=== PATIENT | female | born 1950 | race Caucasian/White ===

== ENCOUNTER 2022-03-20 12:17 | Inpatient (IN) | payer MEDICARE, MEDICAID ==
[2022-03-20] VITALS (10 sets, daily range): BP systolic 106–137; BP diastolic 37–68
[~2022-03-20] VITALS: Ht 162.6 cm; Wt 100.0 kg
[~2022-03-20 12:17] MED LIST: ALBU18HF2 INH; ALPR1TAB7 PO; BUDE10.2 INH; CHOL500050 PO; CYCL-524 PO; DULO60CA65 PO; FERR-119 PO; FLUT16SP26 NS; HYDR-4383 PO; LACT1CAP65 PO; LISI10TA27 PO; LORA10TA65 PO; LOVA20TA2 PO; MECL-159 PO; NICO-503 BC; NICO-687 TD; OMEP40CA21 PO; PRED10TA PO; PSEU-259 PO; ZET10T PO; [UNRECOGNIZED DRUG - CODE] PO
[2022-03-20 13:20] LABS: OCCULT BLOOD STOOL POSITIVE (Neg)
[2022-03-20 13:33] LABS: BASOPHILS % (AUTO) 0.9 % (0-1); EOSINOPHILS % (AUTO) 0.5 % (0-6); LYMPHOCYTES # (AUTO) 0.7 X10'3 (1.1-4.8); LYMPHOCYTES % (AUTO) 11.6 % (21-51); MEAN CORPUSCULAR HEMOGLOBIN 25.3 PG (27.0-31.0); MEAN CORPUSCULAR HGB CONC 30.2 g/dL (33.0-36.5); MEAN CORPUSCULAR VOLUME 83.7 FL (78-98); MEAN PLATELET VOLUME 8.7 FL (7.4-10.4); MONOCYTES # (AUTO) 0.4 X10'3 (0-0.9); MONOCYTES % (AUTO) 6.5 % (2-12); NEUTROPHILS # (AUTO) 4.7 X10'3 (1.8-7.7); NEUTROPHILS % (AUTO) 80.5 % (42-75); PLATELET COUNT 231 X10'3 (140-440); RED BLOOD COUNT 2.44 X10'6 (4.20-5.60); RED CELL DISTRIBUTION WIDTH 23.4 % (11.5-14.5); WHITE BLOOD COUNT 5.9 X10'3 (4.5-11.0)
[2022-03-20 13:34] LABS: ALANINE AMINOTRANSFERASE 13 U/L (12-78); ALBUMIN 3.3 G/DL (3.4-5.0); ALBUMIN/GLOBULIN RATIO 0.9 (1.1-1.5); ALKALINE PHOSPHATASE 86 IU/L (46-116); ANION GAP 5 (8-16); ASPARTATE AMINO TRANSFERASE 26 U/L (10-37); BILIRUBIN,TOTAL 0.1 MG/DL (0.1-1.0); BLOOD UREA NITROGEN 12 MG/DL (7-18); BUN/CREATININE RATIO 17.6 (6.6-38.0); CALCIUM 9.1 MG/DL (8.5-10.1); CHLORIDE 103 MMOL/L (99-107); CREATININE 0.68 MG/DL (0.40-0.90); GLUCOSE 107 MG/DL (70-104); POTASSIUM 4.2 MMOL/L (3.5-5.1); SODIUM 136 MMOL/L (135-145); TOTAL CARBON DIOXIDE 28.1 MMOL/L (24-32); TOTAL PROTEIN 6.8 G/DL (6.4-8.2); eGFR 85 ML/MIN
[2022-03-20 13:37] LABS: HEMATOCRIT 20.4 % (35.0-45.0); HEMOGLOBIN 6.2 g/dl (12.0-16.0)
[2022-03-20] MEDS ORDERED: pantoprazole IV 80 MG in normal saline 100ml IV soln 100 ML IV ONE (13:50)
[2022-03-20 14:09] LABS: HYPOCHROMASIA 1+; PLATELET ESTIMATE NORMAL; POLYCHROMASIA 2+
[2022-03-20 14:10] LABS: ANISOCYTOSIS 3+; ELLIPTOCYTES 1+; SCHISTOCYTES 1+; STOMATOCYTES 1+
[2022-03-20] MEDS ORDERED: pantoprazole 40 MG vial IV ONE (14:15)
[2022-03-20] MEDS ORDERED: ondansetron/PF 4mg/2ml inj IV PRN (14:30)
[2022-03-20] MEDS ORDERED: magnesium hydroxide 30ml (MOM) UD suspension PO PRN (14:30)
[2022-03-20] MEDS ORDERED: acetaminophen 325mg tablet PO PRN ×2 (14:30)
[2022-03-20] MEDS ORDERED: mag hydrox/Alum hydrox/simeth 30ml oral suspension PO PRN (14:30)
[2022-03-20] MEDS ORDERED: morphine 2 MG/ML inj. syringe IV PRN ×2 (14:30)
[2022-03-20] MEDS ORDERED: HYDROcodone/acetaminophen 5mg/325mg tablet PO PRN (14:30)
--- NOTE | 2022-03-20 14:30 | NUR ---
PT TO GI LAB
[2022-03-20] MEDS ORDERED: MIDAZolam 1 MG/ML 5ML VIAL ONE (14:34)
[2022-03-20] MEDS ORDERED: LIDOcaine Viscous 15ml cup ONE (14:34)
[2022-03-20] MEDS ORDERED: fentaNYL/PF 50MCG/1 ML 2ML syringe ONE (14:34)
[2022-03-20] MEDS ORDERED: CYCL10TA25 PO (15:00)
[2022-03-20] MEDS ORDERED: LISI10TA27 PO (15:00)
[2022-03-20] MEDS ORDERED: LOVA20TA2 PO (15:00)
[2022-03-20] MEDS ORDERED: FLUT1BLS16 PO (15:00)
[2022-03-20] MEDS ORDERED: ALPR0.5T9 PO (15:00)
--- NOTE | 2022-03-20 15:25 | NUR ---
PT STILL IN GI LAB
--- NOTE | 2022-03-20 15:40 | NUR ---
PT RETURNED FROM GI LAB. NO OBVIOUS SIGNS OF BLEEDING REPORTED. NO COMPLICATIONS REPORTED. 97% RA. PT A&OX4.
[2022-03-20] MEDS ORDERED: pantoprazole 40MG/NS 100ML BAG 100 ML IV SCH (16:00)
[2022-03-20] MEDS: pantoprazole 40MG/NS 100ML BAG 100 ML IV SCH (16:18)
[2022-03-20 16:27] LABS: EOSINOPHILS % (AUTO) 0.8 % (0-6); LYMPHOCYTES # (AUTO) 0.7 X10'3 (1.1-4.8); MONOCYTES # (AUTO) 0.4 X10'3 (0-0.9); NEUTROPHILS # (AUTO) 4.2 X10'3 (1.8-7.7); WHITE BLOOD COUNT 5.4 X10'3 (4.5-11.0)
[2022-03-20 16:29] LABS: BASOPHILS % (AUTO) 0.8 % (0-1); LYMPHOCYTES % (AUTO) 13.2 % (21-51); MEAN CORPUSCULAR VOLUME 83.5 FL (78-98); MEAN PLATELET VOLUME 8.4 FL (7.4-10.4); MONOCYTES % (AUTO) 7.6 % (2-12); NEUTROPHILS % (AUTO) 77.6 % (42-75); PLATELET COUNT 217 X10'3 (140-440); RED BLOOD COUNT 2.32 X10'6 (4.20-5.60); RED CELL DISTRIBUTION WIDTH 23.6 % (11.5-14.5)
[2022-03-20 16:31] LABS: HEMOGLOBIN 5.8 g/dl (12.0-16.0)
[2022-03-20] MEDS: fluconazole/NS 400mg/200ml bag 200 ML IV SCH (16:40)
[2022-03-20] MEDS: docusate sod 100mg capsule PO SCH (19:12)
[2022-03-21] VITALS (15 sets, daily range): BP systolic 103–143; BP diastolic 34–64
[2022-03-21] MEDS: cyclobenzaprine 10mg tablet PO PRN ×2 (00:56→19:48)
[2022-03-21] MEDS: duloxetine 30mg CAPSULE.DR PO SCH ×3 (00:56→19:48)
[2022-03-21] MEDS: fluconazole/NS 400mg/200ml bag 200 ML IV SCH (01:42)
[2022-03-21] MEDS: pantoprazole 40MG/NS 100ML BAG 100 ML IV SCH ×2 (03:37→08:25)
[2022-03-21 06:37] LABS: BASOPHILS % (AUTO) 0.7 % (0-1); EOSINOPHILS # (AUTO) 0.1 X10'3 (0-0.9); EOSINOPHILS % (AUTO) 1.1 % (0-6); HEMATOCRIT 23.6 % (35.0-45.0); HEMOGLOBIN 7.5 g/dl (12.0-16.0); LYMPHOCYTES # (AUTO) 0.6 X10'3 (1.1-4.8); LYMPHOCYTES % (AUTO) 11.3 % (21-51); MEAN CORPUSCULAR HEMOGLOBIN 27.2 PG (27.0-31.0); MEAN CORPUSCULAR HGB CONC 31.8 g/dL (33.0-36.5); MEAN CORPUSCULAR VOLUME 85.3 FL (78-98); MEAN PLATELET VOLUME 8.7 FL (7.4-10.4); MONOCYTES # (AUTO) 0.2 X10'3 (0-0.9); MONOCYTES % (AUTO) 4.2 % (2-12); NEUTROPHILS # (AUTO) 4.2 X10'3 (1.8-7.7); NEUTROPHILS % (AUTO) 82.7 % (42-75); PLATELET COUNT 198 X10'3 (140-440); RED BLOOD COUNT 2.76 X10'6 (4.20-5.60); RED CELL DISTRIBUTION WIDTH 20.2 % (11.5-14.5); WHITE BLOOD COUNT 5.1 X10'3 (4.5-11.0)
[2022-03-21 07:00] LABS: ANION GAP 7 (8-16); BLOOD UREA NITROGEN 10 MG/DL (7-18); BUN/CREATININE RATIO 14.5 (6.6-38.0); CALCIUM 8.8 MG/DL (8.5-10.1); CHLORIDE 106 MMOL/L (99-107); CREATININE 0.69 MG/DL (0.40-0.90); GLUCOSE 90 MG/DL (70-104); SODIUM 140 MMOL/L (135-145); TOTAL CARBON DIOXIDE 27.5 MMOL/L (24-32); eGFR 84 ML/MIN
[2022-03-21 07:11] LABS: ANISOCYTOSIS 3+; ELLIPTOCYTES FEW; HYPOCHROMASIA 1+; MICROCYTOSIS 1+; PLATELET ESTIMATE NORMAL; POIKILOCYTOSIS 1+; POLYCHROMASIA 1+; TARGET CELLS FEW
[2022-03-21] MEDS: FLUTICASONE PO SCH (08:00)
[2022-03-21] MEDS: VILANTER PO SCH (08:00)
[2022-03-21] MEDS: docusate sod 100mg capsule PO SCH ×2 (08:00→19:48)
[2022-03-21] MEDS: UMECLIDIN PO SCH (08:00)
[2022-03-21] MEDS: ezetimibe 10mg tablet PO SCH (08:34)
[2022-03-21] MEDS: lisinopril 10 MG tablet PO SCH (08:35)
[2022-03-21] MEDS: ALPRAZolam 0.5mg tablet PO PRN ×2 (08:42→19:48)
[2022-03-21] MEDS: pantoprazole 40mg Tablet.DR PO SCH ×2 (08:45→19:49)
--- NOTE | 2022-03-21 10:15 | NUR ---
PAGER ID: [phone] MESSAGE: Kerline 1946 Re: [place], Please call re: Negative orthostatics and diet question, Non urgent Thank You
[2022-03-21] MEDS: atorvastatin 10mg tablet PO SCH (11:28)
--- NOTE | 2022-03-21 15:02 | NUR ---
PAGER ID: [phone] MESSAGE: Kerline [id number] [place] [id number] please call re: diet
--- NOTE | 2022-03-21 18:54 | NUR ---
Problems reprioritized. Patient report given, questions answered & plan of care reviewed with Marilee CARRILLO.
--- NOTE | 2022-03-21 19:05 | NUR ---
Patient in room ORTHO 4024. I have received report from GRANT CARRILLO and had the opportunity to ask questions and assume patient care.
[2022-03-22] MEDS ORDERED: fluconazole/NS 400mg/200ml bag 200 ML IV SCH (01:00)
[2022-03-22 06:00] VITALS: BP 140/55
[2022-03-22 06:10] LABS: BASOPHILS % (AUTO) 0.8 % (0-1); EOSINOPHILS # (AUTO) 0.1 X10'3 (0-0.9); EOSINOPHILS % (AUTO) 2.1 % (0-6); HEMATOCRIT 27.6 % (35.0-45.0); HEMOGLOBIN 8.7 g/dl (12.0-16.0); LYMPHOCYTES # (AUTO) 0.6 X10'3 (1.1-4.8); LYMPHOCYTES % (AUTO) 11.5 % (21-51); MEAN CORPUSCULAR HEMOGLOBIN 27.7 PG (27.0-31.0); MEAN CORPUSCULAR HGB CONC 31.5 g/dL (33.0-36.5); MEAN PLATELET VOLUME 8.9 FL (7.4-10.4); MONOCYTES # (AUTO) 0.4 X10'3 (0-0.9); MONOCYTES % (AUTO) 7.9 % (2-12); NEUTROPHILS # (AUTO) 4.1 X10'3 (1.8-7.7); NEUTROPHILS % (AUTO) 77.7 % (42-75); PLATELET COUNT 192 X10'3 (140-440); RED BLOOD COUNT 3.14 X10'6 (4.20-5.60); RED CELL DISTRIBUTION WIDTH 19.6 % (11.5-14.5); WHITE BLOOD COUNT 5.3 X10'3 (4.5-11.0)
[2022-03-22 06:14] LABS: ALBUMIN 3.2 G/DL (3.4-5.0); ANION GAP 2 (8-16); BLOOD UREA NITROGEN 11 MG/DL (7-18); BUN/CREATININE RATIO 14.3 (6.6-38.0); CALCIUM 8.7 MG/DL (8.5-10.1); CHLORIDE 103 MMOL/L (99-107); CREATININE 0.77 MG/DL (0.40-0.90); GLUCOSE 116 MG/DL (70-104); SODIUM 135 MMOL/L (135-145); TOTAL CARBON DIOXIDE 30.5 MMOL/L (24-32); eGFR 74 ML/MIN
--- NOTE | 2022-03-22 06:28 | NUR ---
Problems reprioritized. Patient report given, questions answered & plan of care reviewed with MICHAELA CARRILLO. Addendum: 03/22/22 at 0644 by Marilee Gallardo RN MISTAKENLY DOCUMENTED I REPORTED OFF ON THIS PATIENT TO MICHAELA. VERBAL REPORT GIVEN TO SAL CARRILLO
[2022-03-22 07:17] LABS: ANISOCYTOSIS 2+; PLATELET ESTIMATE NORMAL
[2022-03-22 07:18] LABS: POIKILOCYTOSIS 1+; POLYCHROMASIA 1+
[2022-03-22] MEDS: docusate sod 100mg capsule PO SCH (08:00)
[2022-03-22] MEDS: VILANTER PO SCH (08:00)
[2022-03-22] MEDS: FLUTICASONE PO SCH (08:00)
[2022-03-22] MEDS: UMECLIDIN PO SCH (08:00)
[2022-03-22] MEDS ORDERED: PANT-47 PO (09:36)
[2022-03-22] MEDS ORDERED: FLUC100T40 PO (09:36)
[2022-03-22] MEDS: duloxetine 30mg CAPSULE.DR PO SCH (09:53)
[2022-03-22] MEDS: lisinopril 10 MG tablet PO SCH (09:54)
[2022-03-22] MEDS: ezetimibe 10mg tablet PO SCH (09:54)
[2022-03-22] MEDS: atorvastatin 10mg tablet PO SCH (09:54)
[2022-03-22] MEDS: pantoprazole 40mg Tablet.DR PO SCH (09:54)
[2022-03-22 10:00] VITALS: BP 129/51
--- NOTE | 2022-03-22 11:10 | NUR ---
Discharge instructions given to patient, patient verbalized understanding of al instructions given to her. Patient has stored home medication at our hospital pharmacy, all her home meds were returned to patient prior to discharge. Peripheral IV catheter removed, tip intact. Instructed patient to ensure she has all belongings with her before leaving the hospital.
[2022-03-23 05:56] LABS: HEMATOCRIT 19.4 % (35.0-45.0)
[2022-03-23] MEDS ORDERED: fluconazole/NS 400mg/200ml bag 200 ML IV SCH (08:00)
--- NOTE | 2022-03-27 12:54 | NUR ---
Case Management DC follow up: telephoned Patient with number listed; however, number is no longer viable.
== END 2022-03-22 11:40 | disposition home or self-care (01) | DRG 368 ==
LOC: ER 12:17 → ED HOLD 14:28 → EDBEDREQ 17:06 → ORTHO 4S 21:45
PROVIDERS: ADMIT Internal Medicine; ATTEND Internal Medicine
PROC: 0DB58ZX Excision of Esophagus, Via Natural or Artificial Opening Endoscopic, Diagnostic (ICD-10-PCS; principal; 2022-03-20)
PROC: 30233N1 Transfusion of Nonautologous Red Blood Cells into Peripheral Vein, Percutaneous Approach (ICD-10-PCS; 2022-03-20)
DX: B37.81 Candidal esophagitis (principal); K31.811 Angiodysplasia of stomach and duodenum with bleeding; J44.1 Chronic obstructive pulmonary disease with (acute) exacerbation; D64.9 Anemia, unspecified; E78.00 Pure hypercholesterolemia, unspecified; E78.5 Hyperlipidemia, unspecified; F17.210 Nicotine dependence, cigarettes, uncomplicated; G47.30 Sleep apnea, unspecified; K57.90 Diverticulosis of intestine, part unspecified, without perforation or abscess without bleeding; F32.A Depression, unspecified; F41.9 Anxiety disorder, unspecified; I10 Essential (primary) hypertension; M79.7 Fibromyalgia; Z79.899 Other long term (current) drug therapy; Z80.3 Family history of malignant neoplasm of breast; Z82.49 Family history of ischemic heart disease and other diseases of the circulatory system
CPT/HCPCS: 36415; 36430; 43239; 71045; 80048; 80053; 82272; 82948; 83880; 84484; 85008; 85025; 86870; 86885; 86900; 86901; 86902; 86905; 86920; 86922; 87081; 88305; 88312; 97116; 97161; 97530; 99152; 99285; A4620; C9113; G0378; J1450; J2250; J2270; J2405; J3010; J7030; J7040; P9016

== ENCOUNTER 2022-06-08 21:28 | Emergency (ER) | payer MEDICARE, MEDICAID ==
[~2022-06-08] VITALS: Ht 162.6 cm; Wt 102.3 kg
[~2022-06-08 21:28] MED LIST changes: -ALBU18HF2 INH; +ALBU8.5H17 INH; +ALPR0.5T9 PO; -ALPR1TAB7 PO; -BUDE10.2 INH; -CHOL500050 PO; -CYCL-524 PO; +CYCL10TA25 PO; -FERR-119 PO; -FLUT16SP26 NS; +FLUT1BLS16 PO; -HYDR-4383 PO; -LACT1CAP65 PO; -LORA10TA65 PO; -MECL-159 PO; -NICO-503 BC; -NICO-687 TD; -OMEP40CA21 PO; -PRED10TA PO; -PSEU-259 PO; -[UNRECOGNIZED DRUG - CODE] PO
[2022-06-08 22:00] LABS: BASOPHILS # (AUTO) 0.1 X10'3 (0-0.2); BASOPHILS % (AUTO) 0.5 % (0-1); EOSINOPHILS # (AUTO) 0.1 X10'3 (0-0.9); EOSINOPHILS % (AUTO) 0.5 % (0-6); LYMPHOCYTES # (AUTO) 0.5 X10'3 (1.1-4.8); LYMPHOCYTES % (AUTO) 4.8 % (21-51); MEAN PLATELET VOLUME 8.5 FL (7.4-10.4); MONOCYTES # (AUTO) 0.6 X10'3 (0-0.9); MONOCYTES % (AUTO) 4.9 % (2-12); NEUTROPHILS # (AUTO) 10.2 X10'3 (1.8-7.7); NEUTROPHILS % (AUTO) 89.3 % (42-75); PLATELET COUNT 337 X10'3 (140-440); WHITE BLOOD COUNT 11.5 X10'3 (4.5-11.0)
[2022-06-08 22:17] LABS: RED BLOOD COUNT 4.44 X10'6 (4.20-5.60)
[2022-06-08 22:18] LABS: HEMATOCRIT 36.4 % (35.0-45.0); HEMOGLOBIN 11.7 g/dl (12.0-16.0); MEAN CORPUSCULAR HEMOGLOBIN 26.5 PG (27.0-31.0); MEAN CORPUSCULAR HGB CONC 32.2 g/dL (33.0-36.5); MEAN CORPUSCULAR VOLUME 82.1 FL (78-98); RED CELL DISTRIBUTION WIDTH 21.8 % (11.5-14.5)
[2022-06-08 22:22] LABS: ALANINE AMINOTRANSFERASE 18 U/L (12-78); ALBUMIN 3.6 G/DL (3.4-5.0); ALBUMIN/GLOBULIN RATIO 0.8 (1.1-1.5); ALKALINE PHOSPHATASE 88 IU/L (46-116); ANION GAP 11 (8-16); ASPARTATE AMINO TRANSFERASE 21 U/L (10-37); BILIRUBIN,TOTAL 0.3 MG/DL (0.1-1.0); BLOOD UREA NITROGEN 13 MG/DL (7-18); BUN/CREATININE RATIO 15.7 (6.6-38.0); CALCIUM 9.9 MG/DL (8.5-10.1); CHLORIDE 104 MMOL/L (99-107); CREATININE 0.83 MG/DL (0.40-0.90); GLUCOSE 128 MG/DL (70-104); LIPASE 90 U/L (73-393); SODIUM 142 MMOL/L (135-145); TOTAL CARBON DIOXIDE 26.9 MMOL/L (24-32); TOTAL PROTEIN 8.3 G/DL (6.4-8.2); eGFR 68 ML/MIN
[2022-06-08] MEDS ORDERED: metoclopramide 5 mg/ml inj IV ONE (22:25)
[2022-06-08] MEDS ORDERED: normal saline 1000ML IV soln IVB ONE (22:25)
[2022-06-08] MEDS ORDERED: diphenhydrAMINE 50 mg/ml inj IV ONE (22:25)
[2022-06-08 22:31] LABS: ANISOCYTOSIS 3+; PLATELET ESTIMATE NORMAL
[2022-06-08 22:32] LABS: HYPOCHROMASIA 1+; SPHEROCYTES 1+
[2022-06-08] MEDS ORDERED: glycopyrrolate 0.2mg/ml inj IV ONE (22:40)
--- NOTE | 2022-06-08 23:50 | NUR ---
patient able to have a bowel movement with semi hard stools with bedside commode. unable to provide urine sample. no active vomiting since receiving medications. patient able to rest comfortably with eyes closed with no signs of distress. vital signs stable. will continue to monitor patient. patient still c/o of lower abdominal cramping.
[2022-06-08 23:52] VITALS: BP 134/68
[2022-06-09] MEDS ORDERED: ONDA4TAB12 PO (01:18)
[2022-06-09] MEDS ORDERED: CEPH-585 PO (01:18)
== END 2022-06-09 01:58 | disposition home or self-care (01) ==
LOC: ER 21:29
DX: L03.113 Cellulitis of right upper limb (principal); R10.30 Lower abdominal pain, unspecified; R42 Dizziness and giddiness; E78.00 Pure hypercholesterolemia, unspecified; I11.9 Hypertensive heart disease without heart failure; I10 Essential (primary) hypertension; J45.909 Unspecified asthma, uncomplicated; D64.9 Anemia, unspecified; F17.200 Nicotine dependence, unspecified, uncomplicated; Z79.899 Other long term (current) drug therapy
CPT/HCPCS: 36415; 80053; 83690; 84145; 85008; 85025; 96361; 96374; 96375; 99284; J1200; J2765; J3490; J7030

== ENCOUNTER 2022-06-17 09:26 | Outpatient (CLI) | payer MEDICARE, MEDICAID ==
[~2022-06-17] VITALS: Ht 162.6 cm; Wt 97.1 kg
[~2022-06-17 09:26] MED LIST changes: +CEPH-585 PO; +ONDA4TAB12 PO
[2022-06-17 10:13] LABS: BASOPHILS # (AUTO) 0.1 X10'3 (0-0.2); BASOPHILS % (AUTO) 1.1 % (0-1); EOSINOPHILS # (AUTO) 0.1 X10'3 (0-0.9); EOSINOPHILS % (AUTO) 1.5 % (0-6); HEMATOCRIT 34.8 % (35.0-45.0); LYMPHOCYTES # (AUTO) 0.7 X10'3 (1.1-4.8); LYMPHOCYTES % (AUTO) 14.5 % (21-51); MEAN CORPUSCULAR HEMOGLOBIN 26.4 PG (27.0-31.0); MEAN CORPUSCULAR HGB CONC 31.5 g/dL (33.0-36.5); MEAN CORPUSCULAR VOLUME 83.7 FL (78-98); MEAN PLATELET VOLUME 8.7 FL (7.4-10.4); MONOCYTES # (AUTO) 0.5 X10'3 (0-0.9); MONOCYTES % (AUTO) 9.8 % (2-12); NEUTROPHILS # (AUTO) 3.6 X10'3 (1.8-7.7); NEUTROPHILS % (AUTO) 73.1 % (42-75); PLATELET COUNT 338 X10'3 (140-440); RED BLOOD COUNT 4.16 X10'6 (4.20-5.60); RED CELL DISTRIBUTION WIDTH 20.8 % (11.5-14.5); WHITE BLOOD COUNT 4.9 X10'3 (4.5-11.0)
[2022-06-17 10:26] LABS: APTT 27 SECONDS (22-32)
[2022-06-17 10:28] LABS: ALANINE AMINOTRANSFERASE 16 U/L (12-78); ALBUMIN 3.5 G/DL (3.4-5.0); ALBUMIN/GLOBULIN RATIO 0.8 (1.1-1.5); ALKALINE PHOSPHATASE 82 IU/L (46-116); ANION GAP 9 (8-16); ASPARTATE AMINO TRANSFERASE 17 U/L (10-37); BILIRUBIN,TOTAL 0.2 MG/DL (0.1-1.0); BLOOD UREA NITROGEN 10 MG/DL (7-18); CALCIUM 9.6 MG/DL (8.5-10.1); CHLORIDE 104 MMOL/L (99-107); CREATININE 0.83 MG/DL (0.40-0.90); GLUCOSE 87 MG/DL (70-104); POTASSIUM 4.1 MMOL/L (3.5-5.1); SODIUM 142 MMOL/L (135-145); TOTAL PROTEIN 7.7 G/DL (6.4-8.2); eGFR 68 ML/MIN
[2022-06-17] MEDS ORDERED: IODIXANOL 320 MG/ML INFUS..BTL 100ML IV ONE (10:41)
[2022-06-17 12:55] LABS: ABG BASE EXCESS -1.9 mmol/L (-2.0-2.0); ABG HCO3 22.3 mmol/L (22.0-26.0); ABG OXYGEN SATURATION 94.1 % (94-97); ABG PCO2 (T) 35.8 mmHg (32.0-45.0); ABG PO2 (T) 73.6 mmHg (75.0-100.0); ALLEN'S TEST POSITIVE; FCOHb 1.7 % (0.0-3.9); FMetHb 0.2 % (0.0-1.5); FO2Hb 92.3 % (94-97); TOTAL HEMOGLOBIN 11.4 G/dl (12.0-16.0)
[2022-06-17] MEDS ORDERED: albuterol 2.5 MG/3 ML nebule NEB ONE (12:55)
[2022-06-27] MEDS ORDERED: CLOP75TA34 PO (10:43)
[2022-06-27] MEDS ORDERED: ASPI-1071 PO (10:43)
== END 2022-06-17 23:59 | disposition home or self-care (01) ==
LOC: VAS 09:26 → RAD 23:59
PROVIDERS: ATTEND Internal Medicine Cardiovascular Disease
DX: Z01.818 Encounter for other preprocedural examination (principal); I65.23 Occlusion and stenosis of bilateral carotid arteries; I70.0 Atherosclerosis of aorta; J43.9 Emphysema, unspecified; J98.11 Atelectasis; K44.9 Diaphragmatic hernia without obstruction or gangrene; K76.0 Fatty (change of) liver, not elsewhere classified; N20.0 Calculus of kidney; K57.30 Diverticulosis of large intestine without perforation or abscess without bleeding; K40.90 Unilateral inguinal hernia, without obstruction or gangrene, not specified as recurrent; Q25.46 Tortuous aortic arch; I25.10 Atherosclerotic heart disease of native coronary artery without angina pectoris; M47.817 Spondylosis without myelopathy or radiculopathy, lumbosacral region; M47.814 Spondylosis without myelopathy or radiculopathy, thoracic region; I51.7 Cardiomegaly; I35.0 Nonrheumatic aortic (valve) stenosis; Z20.822 Contact with and (suspected) exposure to COVID-19
CPT/HCPCS: 36415; 36600; 71046; 71275; 74174; 80053; 82803; 85018; 85025; 85610; 85730; 87811; 93880; 94060; 94727; 94729; 94760; Q9967

== ENCOUNTER 2022-07-07 16:54 | Inpatient (IN) | payer MEDICARE, MEDICAID ==
[~2022-07-07] VITALS: Ht 162.6 cm; Wt 98.8 kg
[~2022-07-07 16:54] MED LIST changes: +ASPI-1071 PO; +CLOP75TA34 PO
[2022-07-07 17:56] LABS: BASOPHILS % (AUTO) 0.4 % (0-1); EOSINOPHILS % (AUTO) 0.4 % (0-6); LYMPHOCYTES # (AUTO) 0.9 X10'3 (1.1-4.8); LYMPHOCYTES % (AUTO) 10.8 % (21-51); MEAN CORPUSCULAR HEMOGLOBIN 27.5 PG (27.0-31.0); MEAN CORPUSCULAR HGB CONC 31.8 g/dL (33.0-36.5); MEAN CORPUSCULAR VOLUME 86.5 FL (78-98); MEAN PLATELET VOLUME 8.6 FL (7.4-10.4); MONOCYTES # (AUTO) 0.5 X10'3 (0-0.9); MONOCYTES % (AUTO) 6.2 % (2-12); NEUTROPHILS # (AUTO) 7.2 X10'3 (1.8-7.7); NEUTROPHILS % (AUTO) 82.2 % (42-75); PLATELET COUNT 307 X10'3 (140-440); RED BLOOD COUNT 2.01 X10'6 (4.20-5.60); RED CELL DISTRIBUTION WIDTH 20.5 % (11.5-14.5); WHITE BLOOD COUNT 8.8 X10'3 (4.5-11.0)
[2022-07-07] MEDS ORDERED: dexamethasone sod phosphate 10mg/ml inj IV STA (17:59)
[2022-07-07] MEDS ORDERED: meclizine 12.5mg tablet PO ONE (18:00)
[2022-07-07] MEDS ORDERED: normal saline 1000ML IV soln IVB ONE (18:00)
[2022-07-07 18:02] LABS: HEMATOCRIT 17.4 % (35.0-45.0); HEMOGLOBIN 5.5 g/dl (12.0-16.0)
[2022-07-07 18:11] LABS: ALANINE AMINOTRANSFERASE 17 U/L (12-78); ALBUMIN 3.2 G/DL (3.4-5.0); ALBUMIN/GLOBULIN RATIO 0.9 (1.1-1.5); ALKALINE PHOSPHATASE 64 IU/L (46-116); ANION GAP 8 (8-16); ASPARTATE AMINO TRANSFERASE 19 U/L (10-37); BILIRUBIN,TOTAL 0.1 MG/DL (0.1-1.0); BLOOD UREA NITROGEN 20 MG/DL (7-18); BUN/CREATININE RATIO 25.6 (6.6-38.0); CALCIUM 9.3 MG/DL (8.5-10.1); CHLORIDE 97 MMOL/L (99-107); CREATININE 0.78 MG/DL (0.40-0.90); GLUCOSE 109 MG/DL (70-104); POTASSIUM 4.3 MMOL/L (3.5-5.1); SODIUM 132 MMOL/L (135-145); TOTAL PROTEIN 6.6 G/DL (6.4-8.2); eGFR 73 ML/MIN
[2022-07-07 19:14] LABS: ANISOCYTOSIS 3+; PLATELET ESTIMATE NORMAL
[2022-07-07 19:15] LABS: ELLIPTOCYTES FEW; MICROCYTOSIS FEW; POLYCHROMASIA 1+
--- NOTE | 2022-07-07 19:52 | NUR ---
Patient readjusted in bed, no signs of distress, no needs at this time. Juancho VANEGAS at bedside.
[2022-07-07] MEDS ORDERED: magnesium 2GM in 50ml NS 50 ML IV PRN (20:30)
[2022-07-07] MEDS ORDERED: potassium CL 10mEq/100ml bag 100 ML IV PRN (20:30)
[2022-07-07] MEDS ORDERED: magnesium Cl slow-release 64mg tablet PO PRN (20:30)
[2022-07-07] MEDS ORDERED: mag hydrox/Alum hydrox/simeth 30ml oral suspension PO PRN (20:30)
[2022-07-07] MEDS ORDERED: HYDROcodone/acetaminophen 10/325mg tab PO PRN (20:30)
[2022-07-07] MEDS ORDERED: magnesium hydroxide 30ml (MOM) UD suspension PO PRN (20:30)
[2022-07-07] MEDS ORDERED: magnesium 4gm in 100ml NS 100 ML IV PRN (20:30)
[2022-07-07] MEDS ORDERED: POTASSIUM BICARB 20meq eff tab 20 MEQ TABLET.EFF PO PRN ×2 (20:30)
[2022-07-07] MEDS ORDERED: acetaminophen 325mg tablet PO PRN (20:30)
[2022-07-07 20:51] LABS: MAGNESIUM 1.8 MG/DL (1.5-2.4)
[2022-07-07 21:09] LABS: BASOPHILS % (AUTO) 0.5 % (0-1); EOSINOPHILS % (AUTO) 0 % (0-6); LYMPHOCYTES # (AUTO) 0.5 X10'3 (1.1-4.8); LYMPHOCYTES % (AUTO) 5.9 % (21-51); MEAN CORPUSCULAR HGB CONC 32.8 g/dL (33.0-36.5); MEAN CORPUSCULAR VOLUME 85.4 FL (78-98); MEAN PLATELET VOLUME 8.4 FL (7.4-10.4); MONOCYTES # (AUTO) 0.1 X10'3 (0-0.9); MONOCYTES % (AUTO) 1.2 % (2-12); NEUTROPHILS # (AUTO) 7.4 X10'3 (1.8-7.7); NEUTROPHILS % (AUTO) 92.4 % (42-75); PLATELET COUNT 271 X10'3 (140-440); RED BLOOD COUNT 1.83 X10'6 (4.20-5.60); RED CELL DISTRIBUTION WIDTH 19.9 % (11.5-14.5)
[2022-07-07 21:15] LABS: HEMOGLOBIN 5.1 g/dl (12.0-16.0)
[2022-07-07 21:16] LABS: HEMATOCRIT 15.6 % (35.0-45.0)
[2022-07-07 21:31] LABS: APTT 26 SECONDS (22-32)
[2022-07-07] MEDS: pantoprazole 40MG/NS 100ML BAG 100 ML IV SCH (21:41)
[2022-07-07] MEDS: normal saline 1000ml 1,000 ML IV SCH (21:42)
[2022-07-07] MEDS: ondansetron/PF 4mg/2ml inj IV PRN (21:43)
[2022-07-07 22:44] LABS: CLARITY,URINE CLEAR (Clear); COLOR,URINE YELLOW (Yellow); GLUCOSE, URINE NEGATIVE (Neg); KETONES,URINE NEGATIVE (Neg); LEUKOCYTE ESTERASE ,URINE NEGATIVE (Neg); NITRITES, URINE NEGATIVE (Neg); OCCULT BLOOD,URINE NEGATIVE (Neg); PROTEIN,URINE NEGATIVE (Neg)
[2022-07-07 22:47] LABS: UA COLLECTION TYPE CLN CATCH MIDSTREAM
[2022-07-07 23:40] LABS: OCCULT BLOOD STOOL POSITIVE (Neg)
[2022-07-08] VITALS (15 sets, daily range): BP systolic 119–157; BP diastolic 40–70
[2022-07-08] MEDS ORDERED: PANT40TA54 PO (00:19)
[2022-07-08] MEDS ORDERED: ASPI-1475 PO (00:21)
[2022-07-08] MEDS ORDERED: ONDA4TAB12 PO (00:21)
[2022-07-08] MEDS ORDERED: CLOP75TA34 PO (00:21)
[2022-07-08] MEDS: pantoprazole 40MG/NS 100ML BAG 100 ML IV SCH ×5 (01:00→19:41)
[2022-07-08] MEDS: budesonide 0.5mg/2ml UD nebule IH SCH ×2 (07:00→20:00)
[2022-07-08] MEDS ORDERED: albuterol 2.5 MG/3 ML nebule NEB PRN (07:00)
[2022-07-08] MEDS: ipratropium 0.5 MG/2.5ML nebule IH SCH ×3 (07:00→20:00)
[2022-07-08] MEDS: K and/or MAG REPLACEMENT MC SCH ×2 (08:00→20:00)
[2022-07-08] MEDS: ezetimibe 10mg tablet PO SCH ×2 (08:00→20:36)
[2022-07-08] MEDS: aspirin 81mg, enteric-coated 1 TAB TABLET.DR PO SCH (08:00)
[2022-07-08 09:14] LABS: BASOPHILS % (AUTO) 0.2 % (0-1); EOSINOPHILS % (AUTO) 0 % (0-6); HEMATOCRIT 23.4 % (35.0-45.0); HEMOGLOBIN 7.7 g/dl (12.0-16.0); LYMPHOCYTES # (AUTO) 0.4 X10'3 (1.1-4.8); LYMPHOCYTES % (AUTO) 2.9 % (21-51); MEAN CORPUSCULAR HEMOGLOBIN 28.5 PG (27.0-31.0); MEAN CORPUSCULAR HGB CONC 33.1 g/dL (33.0-36.5); MEAN CORPUSCULAR VOLUME 86.1 FL (78-98); MEAN PLATELET VOLUME 8.6 FL (7.4-10.4); MONOCYTES # (AUTO) 0.7 X10'3 (0-0.9); MONOCYTES % (AUTO) 4.8 % (2-12); NEUTROPHILS # (AUTO) 13.2 X10'3 (1.8-7.7); NEUTROPHILS % (AUTO) 92.1 % (42-75); PLATELET COUNT 239 X10'3 (140-440); RED BLOOD COUNT 2.72 X10'6 (4.20-5.60); RED CELL DISTRIBUTION WIDTH 17.3 % (11.5-14.5); WHITE BLOOD COUNT 14.3 X10'3 (4.5-11.0)
[2022-07-08 09:38] LABS: ALANINE AMINOTRANSFERASE 15 U/L (12-78); ALBUMIN 3.2 G/DL (3.4-5.0); ALKALINE PHOSPHATASE 61 IU/L (46-116); ANION GAP 9 (8-16); ASPARTATE AMINO TRANSFERASE 15 U/L (10-37); BILIRUBIN,TOTAL 0.9 MG/DL (0.1-1.0); BLOOD UREA NITROGEN 22 MG/DL (7-18); BUN/CREATININE RATIO 33.3 (6.6-38.0); CALCIUM 9.1 MG/DL (8.5-10.1); CHLORIDE 100 MMOL/L (99-107); CREATININE 0.66 MG/DL (0.40-0.90); GLUCOSE 118 MG/DL (70-104); MAGNESIUM 1.8 MG/DL (1.5-2.4); POTASSIUM 4.2 MMOL/L (3.5-5.1); SODIUM 134 MMOL/L (135-145); TOTAL CARBON DIOXIDE 25.1 MMOL/L (24-32); TOTAL PROTEIN 6.4 G/DL (6.4-8.2); eGFR 88 ML/MIN
[2022-07-08] MEDS: duloxetine 30mg CAPSULE.DR PO SCH ×2 (09:47→20:24)
[2022-07-08] MEDS: ALPRAZolam 0.5mg tablet PO PRN ×2 (09:47→20:24)
[2022-07-08] MEDS: docusate sod 100mg capsule PO SCH ×2 (09:47→20:00)
[2022-07-08] MEDS: atorvastatin 10mg tablet PO SCH (09:48)
[2022-07-08] MEDS: pantoprazole 40mg Tablet.DR PO SCH (09:50)
[2022-07-08] MEDS ORDERED: fentaNYL/PF 50MCG/1 ML 2ML syringe ONE (15:27)
[2022-07-08] MEDS ORDERED: MIDAZolam 1 MG/ML 5ML VIAL ONE (15:27)
[2022-07-08] MEDS ORDERED: LIDOcaine Viscous 15ml cup ONE (15:27)
--- NOTE | 2022-07-08 17:00 | NUR ---
Pt Jann kwong, called, updated on pt status, pt presently in GI Lab
--- NOTE | 2022-07-08 18:25 | NUR ---
PAGER ID: [phone] MESSAGE: [id number], Reggie, EGD complete, diet order? H/H recheck? last h/h 7.7/23.4. ZACK Hunt [id number]
--- NOTE | 2022-07-08 18:30 | NUR ---
Patient in room PCU 3028. I have received report from Marilee CARRILLO and had the opportunity to ask questions and assume patient care.
[2022-07-08] MEDS: cyclobenzaprine 10mg tablet PO PRN (20:35)
[2022-07-08] MEDS: normal saline 1000ml 1,000 ML IV SCH (21:30)
--- NOTE | 2022-07-08 22:00 | NUR ---
agree with GEOMETRY TUTOR assessments from LUCIANO Suresh.
[2022-07-09] VITALS (7 sets, daily range): BP systolic 90–128; BP diastolic 34–57
[2022-07-09] MEDS: pantoprazole 40MG/NS 100ML BAG 100 ML IV SCH ×5 (00:44→22:08)
[2022-07-09] MEDS: ipratropium 0.5 MG/2.5ML nebule IH SCH ×4 (02:00→20:00)
[2022-07-09 06:10] LABS: BASOPHILS % (AUTO) 0.3 % (0-1); EOSINOPHILS % (AUTO) 0 % (0-6); HEMATOCRIT 22.2 % (35.0-45.0); HEMOGLOBIN 7.3 g/dl (12.0-16.0); LYMPHOCYTES # (AUTO) 0.9 X10'3 (1.1-4.8); LYMPHOCYTES % (AUTO) 10.7 % (21-51); MEAN CORPUSCULAR HEMOGLOBIN 28.6 PG (27.0-31.0); MEAN CORPUSCULAR HGB CONC 32.9 g/dL (33.0-36.5); MEAN CORPUSCULAR VOLUME 86.7 FL (78-98); MEAN PLATELET VOLUME 8.7 FL (7.4-10.4); MONOCYTES # (AUTO) 0.6 X10'3 (0-0.9); MONOCYTES % (AUTO) 6.9 % (2-12); NEUTROPHILS # (AUTO) 6.8 X10'3 (1.8-7.7); NEUTROPHILS % (AUTO) 82.1 % (42-75); PLATELET COUNT 225 X10'3 (140-440); RED BLOOD COUNT 2.56 X10'6 (4.20-5.60); RED CELL DISTRIBUTION WIDTH 17.7 % (11.5-14.5); WHITE BLOOD COUNT 8.3 X10'3 (4.5-11.0)
--- NOTE | 2022-07-09 06:26 | NUR ---
Problems reprioritized. Patient report given, questions answered & plan of care reviewed with Boone CARRILLO.
[2022-07-09 06:37] LABS: ALANINE AMINOTRANSFERASE 14 U/L (12-78); ALBUMIN 3.1 G/DL (3.4-5.0); ALBUMIN/GLOBULIN RATIO 1.1 (1.1-1.5); ALKALINE PHOSPHATASE 56 IU/L (46-116); ANION GAP 7 (8-16); ASPARTATE AMINO TRANSFERASE 13 U/L (10-37); BILIRUBIN,TOTAL 0.5 MG/DL (0.1-1.0); BLOOD UREA NITROGEN 20 MG/DL (7-18); BUN/CREATININE RATIO 25.3 (6.6-38.0); CALCIUM 8.6 MG/DL (8.5-10.1); CHLORIDE 105 MMOL/L (99-107); CREATININE 0.79 MG/DL (0.40-0.90); GLUCOSE 96 MG/DL (70-104); MAGNESIUM 2.2 MG/DL (1.5-2.4); SODIUM 140 MMOL/L (135-145); TOTAL CARBON DIOXIDE 27.7 MMOL/L (24-32); eGFR 72 ML/MIN
[2022-07-09] MEDS: K and/or MAG REPLACEMENT MC SCH ×2 (08:00→19:52)
[2022-07-09] MEDS: pantoprazole 40mg Tablet.DR PO SCH (08:54)
[2022-07-09] MEDS: docusate sod 100mg capsule PO SCH ×2 (08:54→19:51)
[2022-07-09] MEDS: duloxetine 30mg CAPSULE.DR PO SCH ×2 (08:54→19:51)
[2022-07-09] MEDS: aspirin 81mg, enteric-coated 1 TAB TABLET.DR PO SCH (08:54)
[2022-07-09] MEDS: atorvastatin 10mg tablet PO SCH (08:54)
[2022-07-09] MEDS: ondansetron/PF 4mg/2ml inj IV PRN (09:01)
[2022-07-09] MEDS: ALPRAZolam 0.5mg tablet PO PRN ×2 (09:01→20:02)
--- NOTE | 2022-07-09 09:30 | NUR ---
Malnutrition consult: Pt reports 24-33 lb wt loss with decreased appetite per malnutrition risk screen with RN. Patient's wt appears stable, documented with scaled wt h/o 100-101 kg 03/21-06/26, current scaled wt is 98.8 kg which is non-significant wt loss of 2.2 kg (2%) in 12 days. Pt initially on a clear liquid diet, documented with 100% PO intake of first meal. Pending first meal since diet advancement to heart healthy. Pt with no documented significant decrease in muscle strength or edema and pt appears well developed well nourished per ED report. Pt currently lacks a minimum of two criteria for malnutrition. Will continue to follow. Addendum: 07/09/22 at [address] Amended: Links added.
[2022-07-09] MEDS: budesonide 0.5mg/2ml UD nebule IH SCH ×2 (10:14→20:00)
[2022-07-09] MEDS ORDERED: normal saline 1000ml 1,000 ML IVB ONE (12:15)
--- NOTE | 2022-07-09 14:11 | NUR ---
PT received 1 liter NS bolus Right BP 100/31 (55) Left BP 105/100 (54) Pt feels tired and a little light headed. MD blancas. Addendum: 07/09/22 at 1421 by Boone Fowler RN Correction left BP 105/40 (54)
[2022-07-09 15:01] LABS: MEAN CORPUSCULAR HEMOGLOBIN 28.3 PG (27.0-31.0); MEAN CORPUSCULAR HGB CONC 32.8 g/dL (33.0-36.5); MEAN CORPUSCULAR VOLUME 86.3 FL (78-98); MEAN PLATELET VOLUME 8.6 FL (7.4-10.4); PLATELET COUNT 225 X10'3 (140-440); RED BLOOD COUNT 2.35 X10'6 (4.20-5.60); WHITE BLOOD COUNT 6.9 X10'3 (4.5-11.0)
[2022-07-09 15:06] LABS: HEMATOCRIT 20.2 % (35.0-45.0); HEMOGLOBIN 6.6 g/dl (12.0-16.0)
[2022-07-09] MEDS: cyclobenzaprine 10mg tablet PO PRN (20:02)
[2022-07-09] MEDS: normal saline 1000ml 1,000 ML IV SCH (22:30)
[2022-07-10] MEDS: pantoprazole 40MG/NS 100ML BAG 100 ML IV SCH ×3 (01:00→09:18)
--- NOTE | 2022-07-10 01:20 | NUR ---
PT RECEIVED A TOTAL OF 2 UNITS LRBC. HAD TO DO PAPER CHARTING FOR THE TRANSFUSION. IT WAS PLACED IN PATIENT CHART
[2022-07-10 02:00] VITALS: BP 116/50
[2022-07-10] MEDS: ipratropium 0.5 MG/2.5ML nebule IH SCH ×3 (02:00→14:00)
[2022-07-10 06:00] VITALS: BP 106/61
[2022-07-10 06:33] LABS: BASOPHILS % (AUTO) 0.5 % (0-1); EOSINOPHILS # (AUTO) 0.1 X10'3 (0-0.9); EOSINOPHILS % (AUTO) 0.9 % (0-6); HEMATOCRIT 26.1 % (35.0-45.0); HEMOGLOBIN 8.6 g/dl (12.0-16.0); LYMPHOCYTES # (AUTO) 0.8 X10'3 (1.1-4.8); LYMPHOCYTES % (AUTO) 12.6 % (21-51); MEAN CORPUSCULAR HEMOGLOBIN 29.2 PG (27.0-31.0); MEAN CORPUSCULAR HGB CONC 32.8 g/dL (33.0-36.5); MEAN CORPUSCULAR VOLUME 88.8 FL (78-98); MEAN PLATELET VOLUME 8.5 FL (7.4-10.4); MONOCYTES # (AUTO) 0.5 X10'3 (0-0.9); MONOCYTES % (AUTO) 8.1 % (2-12); NEUTROPHILS # (AUTO) 4.7 X10'3 (1.8-7.7); NEUTROPHILS % (AUTO) 77.9 % (42-75); PLATELET COUNT 206 X10'3 (140-440); RED BLOOD COUNT 2.94 X10'6 (4.20-5.60); RED CELL DISTRIBUTION WIDTH 16.6 % (11.5-14.5); WHITE BLOOD COUNT 6.1 X10'3 (4.5-11.0)
--- NOTE | 2022-07-10 06:40 | NUR ---
Problems reprioritized. Patient report given, questions answered & plan of care reviewed with GERARDO BAILEY.
[2022-07-10 06:51] LABS: ALANINE AMINOTRANSFERASE 13 U/L (12-78); ALBUMIN 2.9 G/DL (3.4-5.0); ALKALINE PHOSPHATASE 59 IU/L (46-116); ANION GAP 7 (8-16); ASPARTATE AMINO TRANSFERASE 12 U/L (10-37); BILIRUBIN,TOTAL 0.4 MG/DL (0.1-1.0); BLOOD UREA NITROGEN 15 MG/DL (7-18); BUN/CREATININE RATIO 20.3 (6.6-38.0); CALCIUM 8.4 MG/DL (8.5-10.1); CHLORIDE 107 MMOL/L (99-107); CREATININE 0.74 MG/DL (0.40-0.90); GLUCOSE 91 MG/DL (70-104); POTASSIUM 3.9 MMOL/L (3.5-5.1); SODIUM 142 MMOL/L (135-145); TOTAL PROTEIN 5.8 G/DL (6.4-8.2); eGFR 77 ML/MIN
--- NOTE | 2022-07-10 06:56 | NUR ---
Patient in room PCU 3028. I have received report from Barby CARRILLO and had the opportunity to ask questions and assume patient care.
[2022-07-10] MEDS: budesonide 0.5mg/2ml UD nebule IH SCH (07:31)
[2022-07-10] MEDS: K and/or MAG REPLACEMENT MC SCH (08:00)
[2022-07-10] MEDS: docusate sod 100mg capsule PO SCH (08:06)
[2022-07-10] MEDS: pantoprazole 40mg Tablet.DR PO SCH (08:06)
[2022-07-10] MEDS: ezetimibe 10mg tablet PO SCH (08:07)
[2022-07-10] MEDS: duloxetine 30mg CAPSULE.DR PO SCH (08:07)
[2022-07-10] MEDS: aspirin 81mg, enteric-coated 1 TAB TABLET.DR PO SCH (08:07)
[2022-07-10] MEDS: atorvastatin 10mg tablet PO SCH (08:15)
[2022-07-10 10:59] VITALS: BP 104/42
[2022-07-10] MEDS ORDERED: PANT40TA54 PO (12:44)
[2022-07-10] MEDS ORDERED: clopidogrel 300mg tablet PO ONE (13:15)
--- NOTE | 2022-07-10 16:30 | NUR ---
patient up and about with assistance of one, . BM x1 black colored. Hgb now at acceptable level see labs. Seen by Dr Maher is for discharge. Order given by Carlita CHOW to give plavix 300mg prior to DC. then for patient to resume usual dosage when home in am. see discharge orders. All Dc instructions given to patient. patient DC home via private car with friend [id number].In stable condition.
== END 2022-07-10 15:45 | disposition home or self-care (01) | DRG 369 ==
LOC: ER 16:55 → ED HOLD 20:30 → PCU 3S 07-08 07:39
PROVIDERS: ADMIT Internal Medicine; ATTEND Family Medicine
PROC: 0DJ08ZZ Inspection of Upper Intestinal Tract, Via Natural or Artificial Opening Endoscopic (ICD-10-PCS; principal; 2022-07-08)
PROC: 30233N1 Transfusion of Nonautologous Red Blood Cells into Peripheral Vein, Percutaneous Approach (ICD-10-PCS; 2022-07-08)
DX: K20.91 Esophagitis, unspecified with bleeding (principal); D68.59 Other primary thrombophilia; D64.9 Anemia, unspecified; D69.6 Thrombocytopenia, unspecified; E78.00 Pure hypercholesterolemia, unspecified; F17.210 Nicotine dependence, cigarettes, uncomplicated; F32.A Depression, unspecified; F41.9 Anxiety disorder, unspecified; G47.33 Obstructive sleep apnea (adult) (pediatric); I10 Essential (primary) hypertension; I35.0 Nonrheumatic aortic (valve) stenosis; I65.29 Occlusion and stenosis of unspecified carotid artery; J44.9 Chronic obstructive pulmonary disease, unspecified; M79.7 Fibromyalgia; Z79.02 Long term (current) use of antithrombotics/antiplatelets; Z80.3 Family history of malignant neoplasm of breast; Z82.0 Family history of epilepsy and other diseases of the nervous system; Z82.49 Family history of ischemic heart disease and other diseases of the circulatory system; Z82.5 Family history of asthma and other chronic lower respiratory diseases; Z83.3 Family history of diabetes mellitus; Z86.73 Personal history of transient ischemic attack (TIA), and cerebral infarction without residual deficits; Z88.5 Allergy status to narcotic agent; Z86.718 Personal history of other venous thrombosis and embolism; Z79.899 Other long term (current) drug therapy; Z71.6 Tobacco abuse counseling
CPT/HCPCS: 36415; 36430; 43235; 71045; 80053; 81003; 82272; 82948; 83735; 84484; 85008; 85025; 85027; 85730; 86870; 86880; 86885; 86900; 86901; 86902; 86922; 87081; 93005; 94640; 94760; 96374; 97161; 97530; 99152; 99291; A4620; A6212; C9113; G0378; J1100; J2250; J2405; J3010; J7030; J7040; J7050; J8597; P9016

== ENCOUNTER 2022-07-14 12:18 | Emergency (ER) | payer MEDICARE, MEDICAID ==
[~2022-07-14] VITALS: Ht 162.6 cm; Wt 97.7 kg
[~2022-07-14 12:18] MED LIST changes: -ASPI-1071 PO; +ASPI-1475 PO; -CEPH-585 PO; +PANT40TA54 PO
--- NOTE | 2022-07-14 12:45 | NUR ---
Pt is awake and alert, speaks in full sentences. Stated that she called 911 because she was dizzy and had blood in her stool.
[2022-07-14 13:08] LABS: BASOPHILS # (AUTO) 0.1 X10'3 (0-0.2); BASOPHILS % (AUTO) 1.1 % (0-1); EOSINOPHILS # (AUTO) 0.1 X10'3 (0-0.9); EOSINOPHILS % (AUTO) 1.5 % (0-6); HEMATOCRIT 22.3 % (35.0-45.0); HEMOGLOBIN 7.3 g/dl (12.0-16.0); LYMPHOCYTES # (AUTO) 0.9 X10'3 (1.1-4.8); LYMPHOCYTES % (AUTO) 15.1 % (21-51); MEAN CORPUSCULAR HEMOGLOBIN 28.5 PG (27.0-31.0); MEAN CORPUSCULAR HGB CONC 32.5 g/dL (33.0-36.5); MEAN CORPUSCULAR VOLUME 87.9 FL (78-98); MEAN PLATELET VOLUME 8.4 FL (7.4-10.4); MONOCYTES # (AUTO) 0.5 X10'3 (0-0.9); NEUTROPHILS # (AUTO) 4.4 X10'3 (1.8-7.7); NEUTROPHILS % (AUTO) 73.3 % (42-75); PLATELET COUNT 269 X10'3 (140-440); RED BLOOD COUNT 2.54 X10'6 (4.20-5.60); RED CELL DISTRIBUTION WIDTH 16.8 % (11.5-14.5); WHITE BLOOD COUNT 5.9 X10'3 (4.5-11.0)
[2022-07-14 13:18] LABS: ALANINE AMINOTRANSFERASE 16 U/L (12-78); ALBUMIN 3.1 G/DL (3.4-5.0); ALBUMIN/GLOBULIN RATIO 0.9 (1.1-1.5); ALKALINE PHOSPHATASE 62 IU/L (46-116); ANION GAP 4 (8-16); ASPARTATE AMINO TRANSFERASE 14 U/L (10-37); BILIRUBIN,TOTAL 0.2 MG/DL (0.1-1.0); BLOOD UREA NITROGEN 17 MG/DL (7-18); CALCIUM 9.3 MG/DL (8.5-10.1); CHLORIDE 104 MMOL/L (99-107); CREATININE 0.68 MG/DL (0.40-0.90); GLUCOSE 102 MG/DL (70-104); POTASSIUM 4.2 MMOL/L (3.5-5.1); SODIUM 136 MMOL/L (135-145); TOTAL CARBON DIOXIDE 28.5 MMOL/L (24-32); TOTAL PROTEIN 6.4 G/DL (6.4-8.2); eGFR 85 ML/MIN
[2022-07-14 13:39] LABS: COLOR,URINE YELLOW (Yellow); GLUCOSE, URINE NEGATIVE (Neg); KETONES,URINE NEGATIVE (Neg); LEUKOCYTE ESTERASE ,URINE SMALL (Neg); OCCULT BLOOD,URINE TRACE-INTACT (Neg); PROTEIN,URINE NEGATIVE (Neg)
[2022-07-14 13:51] LABS: NITRITES, URINE NEGATIVE (Neg)
[2022-07-14 13:57] LABS: CLARITY,URINE SLIGHTLY CLOUDY (Clear); UA COLLECTION TYPE CLN CATCH MIDSTREAM
[2022-07-14 14:07] LABS: BACTERIA,URINE 1+ /HPF (Neg); SQUAMOUS EPITHELIAL CELL,UR MANY /LPF (FEW)
--- NOTE | 2022-07-14 15:55 | NUR ---
Started Blood Transfusion. Blood is on a warmer.
[2022-07-14 16:00] VITALS: BP 121/47
--- NOTE | 2022-07-14 18:10 | NUR ---
Pt given and understands d/c instructions. IV d/c'd, catheter was intact. Ambulatory with a steady gait.
== END 2022-07-14 18:10 | disposition home or self-care (01) ==
LOC: ER 12:18
DX: D50.0 Iron deficiency anemia secondary to blood loss (chronic) (principal); K92.1 Melena; D68.59 Other primary thrombophilia; E78.00 Pure hypercholesterolemia, unspecified; I11.9 Hypertensive heart disease without heart failure; J45.909 Unspecified asthma, uncomplicated; Z88.5 Allergy status to narcotic agent; Z79.899 Other long term (current) drug therapy; Z79.82 Long term (current) use of aspirin
CPT/HCPCS: 36415; 71045; 80053; 81001; 85025; 86870; 86885; 86900; 86901; 86922; 93005; 99285; J7030; J7050; P9016; A4353

== ENCOUNTER 2022-07-22 11:29 | Emergency (ER) | payer MEDICARE, MEDICAID ==
[~2022-07-22] VITALS: Ht 162.6 cm; Wt 100.0 kg
[2022-07-22] VITALS (8 sets, daily range): BP systolic 106–136; BP diastolic 43–97
[2022-07-22 12:00] LABS: BASOPHILS % (AUTO) 0.6 % (0-1); EOSINOPHILS # (AUTO) 0.1 X10'3 (0-0.9); EOSINOPHILS % (AUTO) 1.4 % (0-6); LYMPHOCYTES # (AUTO) 0.6 X10'3 (1.1-4.8); LYMPHOCYTES % (AUTO) 13.6 % (21-51); MEAN CORPUSCULAR HEMOGLOBIN 27.2 PG (27.0-31.0); MEAN CORPUSCULAR HGB CONC 30.5 g/dL (33.0-36.5); MEAN CORPUSCULAR VOLUME 89.1 FL (78-98); MEAN PLATELET VOLUME 8.4 FL (7.4-10.4); MONOCYTES # (AUTO) 0.3 X10'3 (0-0.9); MONOCYTES % (AUTO) 7.1 % (2-12); NEUTROPHILS # (AUTO) 3.5 X10'3 (1.8-7.7); NEUTROPHILS % (AUTO) 77.3 % (42-75); PLATELET COUNT 291 X10'3 (140-440); RED BLOOD COUNT 2.16 X10'6 (4.20-5.60); RED CELL DISTRIBUTION WIDTH 18.1 % (11.5-14.5); WHITE BLOOD COUNT 4.5 X10'3 (4.5-11.0)
[2022-07-22 12:06] LABS: HEMATOCRIT 19.2 % (35.0-45.0); HEMOGLOBIN 5.9 g/dl (12.0-16.0)
[2022-07-22 12:09] LABS: ALANINE AMINOTRANSFERASE 13 U/L (12-78); ALBUMIN/GLOBULIN RATIO 0.9 (1.1-1.5); ALKALINE PHOSPHATASE 69 IU/L (46-116); ANION GAP 6 (8-16); ASPARTATE AMINO TRANSFERASE 13 U/L (10-37); BILIRUBIN,TOTAL 0.2 MG/DL (0.1-1.0); BLOOD UREA NITROGEN 10 MG/DL (7-18); BUN/CREATININE RATIO 16.1 (6.6-38.0); CHLORIDE 106 MMOL/L (99-107); CREATININE 0.62 MG/DL (0.40-0.90); GLUCOSE 113 MG/DL (70-104); POTASSIUM 3.5 MMOL/L (3.5-5.1); SODIUM 141 MMOL/L (135-145); TOTAL CARBON DIOXIDE 29.1 MMOL/L (24-32); TOTAL PROTEIN 6.2 G/DL (6.4-8.2); eGFR > 90 ML/MIN
[2022-07-22 12:49] LABS: OCCULT BLOOD STOOL POSITIVE (Neg)
--- NOTE | 2022-07-22 15:25 | NUR ---
Call to Tori in blood bank at this time for status of PRBC unit. States patient has various antibodies and already spoke with Dr Wilhelm to let him know.
--- NOTE | 2022-07-22 15:31 | NUR ---
PT UP TO BEDSIDE COMMODE, MIN. ASSISTANCE NEEDED. NO DIZZINESS NOTED.
[2022-07-22] MEDS ORDERED: ondansetron/PF 4mg/2ml inj IV ONE (15:55)
--- NOTE | 2022-07-22 17:50 | NUR ---
DR VILLAGRAN AT BEDSIDE TO SPEAK WITH PAT AND GIVE DC INSTRUCTIONS, ALL QUESTIONS AND CONCERNS ADDRESSED BY MD. PER MD NO REPEAT HEMOGRAM AFTER 1 UNIT PRBC.
--- NOTE | 2022-07-22 19:10 | NUR ---
Dr Son notified of BP 106/45 MAP 56 and c/o some dizziness, another unit of PRBCs ordered per MD and pt updated on POC.
[2022-07-22 19:57] LABS: BASOPHILS % (AUTO) 0.5 % (0-1); EOSINOPHILS # (AUTO) 0.1 X10'3 (0-0.9); EOSINOPHILS % (AUTO) 0.8 % (0-6); HEMATOCRIT 22.5 % (35.0-45.0); HEMOGLOBIN 7.1 g/dl (12.0-16.0); LYMPHOCYTES # (AUTO) 0.5 X10'3 (1.1-4.8); LYMPHOCYTES % (AUTO) 8.1 % (21-51); MEAN CORPUSCULAR HEMOGLOBIN 28.4 PG (27.0-31.0); MEAN CORPUSCULAR HGB CONC 31.5 g/dL (33.0-36.5); MEAN CORPUSCULAR VOLUME 90.1 FL (78-98); MEAN PLATELET VOLUME 8.4 FL (7.4-10.4); MONOCYTES # (AUTO) 0.4 X10'3 (0-0.9); NEUTROPHILS # (AUTO) 5.6 X10'3 (1.8-7.7); NEUTROPHILS % (AUTO) 84.6 % (42-75); PLATELET COUNT 279 X10'3 (140-440); RED CELL DISTRIBUTION WIDTH 16.6 % (11.5-14.5); WHITE BLOOD COUNT 6.7 X10'3 (4.5-11.0)
== END 2022-07-22 22:59 | disposition home or self-care (01) ==
LOC: ER 11:29
DX: D64.9 Anemia, unspecified (principal); R42 Dizziness and giddiness; E78.00 Pure hypercholesterolemia, unspecified; I10 Essential (primary) hypertension; J45.909 Unspecified asthma, uncomplicated; Z88.5 Allergy status to narcotic agent
CPT/HCPCS: 36415; 36430; 71045; 80053; 82272; 83880; 84484; 85025; 86870; 86880; 86885; 86900; 86901; 86922; 93005; 96374; 99285; J2405; J7040; P9016; A4615

== ENCOUNTER 2022-07-31 10:00 | Emergency (ER) | payer MEDICARE, MEDICAID ==
[~2022-07-31] VITALS: Ht 162.6 cm; Wt 97.0 kg
[~2022-07-31 10:00] MED LIST changes: +ALBU2.5V10 NEB; -ALBU8.5H17 INH; -ASPI-1475 PO; -FLUT1BLS16 PO; +FLUT1BLS4 INH; -ONDA4TAB12 PO
[2022-07-31 11:57] LABS: EOSINOPHILS # (AUTO) 0.1 X10'3 (0-0.9); HEMATOCRIT 26.8 % (35.0-45.0); HEMOGLOBIN 8.2 g/dl (12.0-16.0); LYMPHOCYTES # (AUTO) 0.5 X10'3 (1.1-4.8); LYMPHOCYTES % (AUTO) 18.1 % (21-51); MEAN CORPUSCULAR HEMOGLOBIN 27.1 PG (27.0-31.0); MEAN CORPUSCULAR HGB CONC 30.7 g/dL (33.0-36.5); MEAN CORPUSCULAR VOLUME 88.1 FL (78-98); MEAN PLATELET VOLUME 8.9 FL (7.4-10.4); MONOCYTES # (AUTO) 0.3 X10'3 (0-0.9); MONOCYTES % (AUTO) 9.3 % (2-12); NEUTROPHILS % (AUTO) 69.6 % (42-75); PLATELET COUNT 339 X10'3 (140-440); RED BLOOD COUNT 3.05 X10'6 (4.20-5.60); RED CELL DISTRIBUTION WIDTH 16.6 % (11.5-14.5); WHITE BLOOD COUNT 2.9 X10'3 (4.5-11.0)
[2022-07-31 12:07] LABS: ALANINE AMINOTRANSFERASE 15 U/L (12-78); ALBUMIN 3.1 G/DL (3.4-5.0); ALBUMIN/GLOBULIN RATIO 0.8 (1.1-1.5); ALKALINE PHOSPHATASE 82 IU/L (46-116); ANION GAP 8 (8-16); ASPARTATE AMINO TRANSFERASE 13 U/L (10-37); BILIRUBIN,TOTAL 0.2 MG/DL (0.1-1.0); BLOOD UREA NITROGEN 8 MG/DL (7-18); CALCIUM 9.3 MG/DL (8.5-10.1); CHLORIDE 106 MMOL/L (99-107); CREATININE 0.57 MG/DL (0.40-0.90); GLUCOSE 95 MG/DL (70-104); POTASSIUM 3.6 MMOL/L (3.5-5.1); SODIUM 142 MMOL/L (135-145); TOTAL CARBON DIOXIDE 27.8 MMOL/L (24-32); eGFR > 90 ML/MIN
[2022-07-31 12:50] LABS: TOTAL CELLS COUNTED 100
[2022-07-31 12:52] LABS: ANISOCYTOSIS 1+; HYPOCHROMASIA 1+; PLATELET ESTIMATE NORMAL
[2022-07-31 12:53] LABS: ELLIPTOCYTES FEW; SCHISTOCYTES FEW; TEAR DROP CELLS FEW
[2022-07-31] MEDS ORDERED: FLUT1BLS16 IH (13:27)
[2022-07-31] MEDS ORDERED: PANT-47 PO (13:28)
[2022-07-31] MEDS ORDERED: ALBU8.5H17 INH (13:29)
[2022-07-31 17:49] LABS: BASOPHILS % (AUTO) 0.8 % (0-1); EOSINOPHILS # (AUTO) 0.1 X10'3 (0-0.9); EOSINOPHILS % (AUTO) 1.9 % (0-6); HEMATOCRIT 24.7 % (35.0-45.0); HEMOGLOBIN 7.9 g/dl (12.0-16.0); LYMPHOCYTES # (AUTO) 0.8 X10'3 (1.1-4.8); MEAN CORPUSCULAR HEMOGLOBIN 27.5 PG (27.0-31.0); MEAN CORPUSCULAR HGB CONC 32.1 g/dL (33.0-36.5); MEAN CORPUSCULAR VOLUME 85.8 FL (78-98); MEAN PLATELET VOLUME 8.3 FL (7.4-10.4); MONOCYTES # (AUTO) 0.3 X10'3 (0-0.9); MONOCYTES % (AUTO) 8.9 % (2-12); NEUTROPHILS # (AUTO) 2.4 X10'3 (1.8-7.7); NEUTROPHILS % (AUTO) 67.4 % (42-75); PLATELET COUNT 317 X10'3 (140-440); RED BLOOD COUNT 2.87 X10'6 (4.20-5.60); RED CELL DISTRIBUTION WIDTH 16.3 % (11.5-14.5); WHITE BLOOD COUNT 3.6 X10'3 (4.5-11.0)
[2022-07-31 22:45] VITALS: BP 118/54
[2022-07-31 23:02] VITALS: BP 120/60
[2022-08-01 01:13] VITALS: BP 112/41
[2022-08-05] MEDS ORDERED: FLUT1BLS4 INH (18:47)
[2022-08-05] MEDS ORDERED: LOVA20TA2 PO (18:47)
[2022-08-05] MEDS ORDERED: FERR-121 PO (18:49)
== END 2022-08-01 01:16 | disposition home or self-care (01) ==
LOC: ER 10:01
DX: K92.2 Gastrointestinal hemorrhage, unspecified (principal); I35.0 Nonrheumatic aortic (valve) stenosis; D64.9 Anemia, unspecified; J45.909 Unspecified asthma, uncomplicated; Z98.890 Other specified postprocedural states; Z88.5 Allergy status to narcotic agent
CPT/HCPCS: 36415; 36430; 71045; 80053; 83880; 84484; 85007; 85025; 86870; 86885; 86900; 86901; 86902; 86905; 86922; 93005; 99285; P9016

== ENCOUNTER 2022-08-06 07:21 | Inpatient (IN) | payer MEDICARE, MEDICAID ==
[2022-07-29 10:28] LABS: BASOPHILS % (AUTO) 0.7 % (0-1); EOSINOPHILS # (AUTO) 0.1 X10'3 (0-0.9); EOSINOPHILS % (AUTO) 1.9 % (0-6); LYMPHOCYTES # (AUTO) 0.6 X10'3 (1.1-4.8); LYMPHOCYTES % (AUTO) 13.3 % (21-51); MEAN CORPUSCULAR HEMOGLOBIN 27.3 PG (27.0-31.0); MEAN CORPUSCULAR HGB CONC 30.8 g/dL (33.0-36.5); MEAN CORPUSCULAR VOLUME 88.5 FL (78-98); MEAN PLATELET VOLUME 8.4 FL (7.4-10.4); MONOCYTES # (AUTO) 0.4 X10'3 (0-0.9); MONOCYTES % (AUTO) 9.4 % (2-12); NEUTROPHILS # (AUTO) 3.3 X10'3 (1.8-7.7); NEUTROPHILS % (AUTO) 74.7 % (42-75); PRE OP HEMATOCRIT 28.4 % (35.0-45.0); PRE OP PLATELET COUNT 376 X10'3 (140-440); RED BLOOD COUNT 3.21 X10'6 (4.20-5.60); RED CELL DISTRIBUTION WIDTH 16.2 % (11.5-14.5)
[2022-07-29 10:31] LABS: PRE OP HEMOGLOBIN 8.7 g/dL (12.0-16.0)
[2022-07-29 10:37] LABS: PRE OP PROTIME 10.6 SECONDS (9.0-12.0)
[2022-07-29 10:38] LABS: ALBUMIN 3.3 G/DL (3.4-5.0); ALBUMIN/GLOBULIN RATIO 0.9 (1.1-1.5); ALKALINE PHOSPHATASE 84 IU/L (46-116); BLOOD UREA NITROGEN 10 MG/DL (7-18); BUN/CREATININE RATIO 16.7 (6.6-38.0); CALCIUM 9.3 MG/DL (8.5-10.1); CHLORIDE 104 MMOL/L (99-107); PRE OP ALT 15 U/L (30-65); PRE OP ANION GAP 7 (8-16); PRE OP AST 12 U/L (10-37); PRE OP BILIRUB, TOTAL 0.2 MG/DL (0.0-1.0); PRE OP GLUCOSE 63 MG/DL (70-104); PRE OP POTASSIUM 3.6 MMOL/L (3.4-5.1); PRE OP SODIUM 139 MMOL/L (135-145); TOTAL CARBON DIOXIDE 27.9 MMOL/L (24-32); TOTAL PROTEIN 6.9 G/DL (6.4-8.2); eGFR > 90 ML/MIN
[2022-08-06] VITALS (29 sets, daily range): BP systolic 89–140; BP diastolic 31–90
[~2022-08-06] VITALS: Ht 162.6 cm; Wt 95.4 kg
[~2022-08-06 07:21] MED LIST changes: -ALBU2.5V10 NEB; +ALBU8.5H17 INH; -CLOP75TA34 PO; +FERR-121 PO; +PANT-47 PO; -PANT40TA54 PO; +albuterol 2.5 MG/3 ML nebule NEB ONE; +aspirin 325mg tablet PO ONE; +ceFAZolin inj. 2,000 MG in dextrose 5%-water 100 ML IV ONE; +famotidine 20mg tablet PO ONE; +nitroPRUSSIDE (NIPRIDE) (200MCG/ML) 100ML Drip IV SCH; +ondansetron/PF 4mg/2ml inj IV PRN; +phenylephrine inj 50 MG in normal saline 250ml IV solN IV SCH; +protamine sulfate 10mg/ml inj. ONE; +ringers solution, lacted 1,000 ML IV SCH; +vancomycin 1,500 MG in NS 300ml IV soln IV ONE
[2022-08-06] MEDS ORDERED: CLOP75TA15 PO (08:58)
[2022-08-06] MEDS ORDERED: heparin 1,000 UNITS/NS 500ml 1,500 ML ONE (11:04)
[2022-08-06] MEDS ORDERED: iohexol 350 MG/ML 50ML vial IV ONE (11:04)
[2022-08-06] MEDS ORDERED: iohexol 350MG/ML 100ml bottle IV ONE (11:04)
[2022-08-06] MEDS ORDERED: LIDOcaine 1% 30ml preserv. free vial ONE (11:05)
[2022-08-06] MEDS ORDERED: fentaNYL/PF 50MCG/1 ML 2ML syringe ONE (11:23)
[2022-08-06] MEDS ORDERED: midazolam 1 mg/ML 2ml injection ONE (11:23)
[2022-08-06] MEDS ORDERED: ALPRAZolam 0.5mg tablet PO PRN (11:30)
[2022-08-06] MEDS ORDERED: cyclobenzaprine 10mg tablet PO PRN (11:30)
[2022-08-06] MEDS ORDERED: ALBUTEROL INHALER 1 PUFF/90 MCG INHALation IH PRN (11:30)
[2022-08-06] MEDS ORDERED: propofol inj 20 ML IV ONE ×4 (12:36)
[2022-08-06] MEDS ORDERED: heparin 1,000unit/ml 10ml vial 10 ML ONE (12:36)
[2022-08-06] MEDS ORDERED: 0.9 % SODIUM CHLORIDE 10 ML VIAL ONE (12:36)
[2022-08-06] MEDS ORDERED: ePHEDrine 50MG/ML INJ. ONE (12:36)
--- NOTE | 2022-08-06 13:08 | NUR ---
Received from OR via BED, accompanied by Anesthesiologist DR. CASTRO and report given by Anesthesiologist AND OR NURSE. PT ARRIVED DROWSY BUT ABLE TO RESPOND TO VERBAL STIMULI ON 8 L OF 02 VIA MASK. VSS. PT HAS 18 G IV TO RIGHT HAND AND ART LINE TO LEFT WRIST AND PRESSURE DEVICE INTACT. PT HAS DRESSING TO R GROIN THAT IS C/D/I AND LEFT GROIN WITH TEMPORARY PACEMAKER THAT IS C/D/I, NO SWELLING OR BLEEDING NOTED. LR AND NIPRIDE CURRENTLY RUNNING. NEURO ASSESSMENT COMPLETED. PUSH, PULL, CREDIT MANAGER, SMILE ALL WITHIN NORMAL LIMITS. BILATERAL PEDAL PULSES STRONG. VSS. WILL CONTINUE TO MONITOR AND RECHECK GROIN SITES. Addendum: 08/06/22 at 1351 by Jerry David RN Amended: Links added.
[2022-08-06] MEDS ORDERED: docusate sod 100mg capsule PO PRN (13:10)
[2022-08-06] MEDS ORDERED: potassium CL 10mEq/100ml bag 100 ML IV PRN (13:10)
[2022-08-06] MEDS ORDERED: magnesium 4gm in 100ml NS 100 ML IV PRN (13:10)
[2022-08-06] MEDS ORDERED: ondansetron/PF 4mg/2ml inj IV PRN ×2 (13:10→14:25)
[2022-08-06] MEDS ORDERED: dextrose 50%-water 50ml dispensing syringe IV PRN ×2 (13:10)
[2022-08-06] MEDS ORDERED: proCHLORperazine 10 MG/2 ml inj IV PRN ×2 (13:10→14:25)
[2022-08-06] MEDS ORDERED: insulin Lispro (HumaLOG) vial - multi-dose SQ SCH (13:10)
[2022-08-06] MEDS ORDERED: DEXTROSE 15 GM of carb/4 tabs (each vial/BOTTLE has 4 tablets) PO PRN ×2 (13:10)
[2022-08-06] MEDS ORDERED: glucagon, human recombinant 1mg kit SUBCUT PRN (13:10)
[2022-08-06] MEDS ORDERED: potassium Cl 40MEQ/1/2NS 520ml 520 ML IV PRN (13:10)
[2022-08-06] MEDS ORDERED: hydrALAZINE 20mg/ml inj. IV PRN ×2 (13:10→14:25)
[2022-08-06] MEDS ORDERED: potassium Cl 40MEQ/270ML bag 250 ML IV PRN (13:10)
[2022-08-06] MEDS ORDERED: potassium Cl 20 mEq SR tablet PO PRN (13:10)
[2022-08-06] MEDS ORDERED: pantoprazole 40mg Tablet.DR PO PRN (13:10)
[2022-08-06] MEDS ORDERED: MESSAGE TO PHARMACY PO ONE (13:10)
[2022-08-06] MEDS ORDERED: diphenhydrAMINE 25mg capsule PO PRN (13:10)
[2022-08-06] MEDS ORDERED: potassium Cl 20mEq/100mL bag 100 ML IV PRN (13:10)
[2022-08-06] MEDS ORDERED: magnesium 2GM in 50ml NS 50 ML IV PRN (13:10)
--- NOTE | 2022-08-06 14:00 | NUR ---
LEFT RADIAL ARTLINE WAS DISCONTINUED PER PATIENT. APPLIED MANUAL PRESSURE AND HEMOSTASIS WAS OBTAINED AFTER 10 MINUTES. APPLIED DRESSING AND SITE IS C/D/I.
[2022-08-06] MEDS ORDERED: acetaminophen 1,000mg/100ml IV 100 ML IV PRN (14:25)
[2022-08-06] MEDS ORDERED: labetalol 20mg/4ml (5mg/ml) syringe IV PRN (14:25)
[2022-08-06] MEDS ORDERED: ringers solution, lacted 1,000 ML IV SCH (14:25)
[2022-08-06] MEDS ORDERED: morphine 2 MG/ML inj. syringe IV PRN (14:25)
[2022-08-06] MEDS ORDERED: meperidine/PF 25mg/ml syringe IV PRN (14:25)
[2022-08-06] MEDS ORDERED: HYDROmorphone/PF 0.2 MG/ML SYRINGE IV PRN (14:25)
--- NOTE | 2022-08-06 15:00 | NUR ---
DR. MOHAMUD DISCONTINUED TEMPORARY PACEMAKER ON LEFT GROIN. PATIENT TOLERATED PROCEDURE WELL. NO S/S OF DISTRESS OR DISCOMFORT AT THIS TIME. HE APPLIED MANUAL PRESSURE FOR 10 MINUTES AND HEMOSTASIS IS OBTAINED. APPLIED GAUZE AND TEGADERM C/D/I.
--- NOTE | 2022-08-06 15:18 | NUR ---
PATIENT HAS MET ALL CRITERIA FOR TRANSFER TO PCU FLOOR. VSS. DRESSINGS INTACT. BED LOW, CALL LIGHT PRESENT AND 2 RAILS UP. RN PRESENT TO ACCEPT CARE OF PATIENT AND REPORT HAS BEEN CALLED. ALL QUESTIONS ANSWERED TO ACCEPTING RN. Addendum: 08/06/22 at 1535 by Jerry David RN Amended: Links added.
[2022-08-06] MEDS: normal saline 1000ml 1,000 ML IV SCH ×2 (15:59→23:51)
[2022-08-06] MEDS: sod chloride 0.9% 10ml flush syringe IV SCH (16:00)
[2022-08-06] MEDS: acetaminophen 325mg tablet PO PRN ×2 (17:39→23:58)
[2022-08-06] MEDS: ceFAZolin 1GM/D5W- ADD-VANTAGE 50 ML IV SCH (17:50)
[2022-08-06] MEDS: duloxetine 30mg CAPSULE.DR PO SCH (19:20)
[2022-08-06] MEDS: vancomycin/NS 1 GM ADD-VANTAGE 250 ML IV SCH (19:21)
[2022-08-06] MEDS ORDERED: insulin glargine (Lantus) pen - multi-dose SQ SCH (21:00)
[2022-08-06 22:25] LABS: BASOPHILS # (AUTO) 0.1 X10'3 (0-0.2); BASOPHILS % (AUTO) 1.1 % (0-1); EOSINOPHILS % (AUTO) 0.7 % (0-6); LYMPHOCYTES # (AUTO) 0.6 X10'3 (1.1-4.8); LYMPHOCYTES % (AUTO) 9.8 % (21-51); MEAN CORPUSCULAR HEMOGLOBIN 28.9 PG (27.0-31.0); MEAN CORPUSCULAR HGB CONC 32.4 g/dL (33.0-36.5); MEAN CORPUSCULAR VOLUME 89.4 FL (78-98); MEAN PLATELET VOLUME 8.8 FL (7.4-10.4); MONOCYTES # (AUTO) 0.4 X10'3 (0-0.9); MONOCYTES % (AUTO) 6.7 % (2-12); NEUTROPHILS # (AUTO) 4.8 X10'3 (1.8-7.7); NEUTROPHILS % (AUTO) 81.7 % (42-75); PLATELET COUNT 226 X10'3 (140-440); RED BLOOD COUNT 1.98 X10'6 (4.20-5.60); RED CELL DISTRIBUTION WIDTH 18.5 % (11.5-14.5); WHITE BLOOD COUNT 5.9 X10'3 (4.5-11.0)
[2022-08-06 22:30] LABS: HEMATOCRIT 17.7 % (35.0-45.0); HEMOGLOBIN 5.7 g/dl (12.0-16.0)
[2022-08-06] MEDS: ALPRAZolam 0.25mg tablet PO PRN (23:58)
[2022-08-07] VITALS (8 sets, daily range): BP systolic 102–139; BP diastolic 31–54
[2022-08-07] MEDS: ceFAZolin 1GM/D5W- ADD-VANTAGE 50 ML IV SCH ×2 (01:36→09:06)
[2022-08-07] MEDS ORDERED: albuterol 2.5 MG/3 ML nebule NEB PRN (07:52)
[2022-08-07] MEDS ORDERED: atorvastatin 10mg tablet PO SCH (08:00)
[2022-08-07] MEDS ORDERED: lisinopril 10 MG tablet PO SCH (08:00)
[2022-08-07] MEDS ORDERED: pantoprazole 40mg Tablet.DR PO SCH (08:00)
[2022-08-07] MEDS ORDERED: ezetimibe 10mg tablet PO SCH (08:00)
[2022-08-07] MEDS ORDERED: Fluticasone/Umeclidin/Vilanter (Trelegy Ellipta 100-62.5-25) IH SCH (08:00)
[2022-08-07] MEDS ORDERED: ferrous sulfate 325mg tablet PO SCH (08:00)
[2022-08-07 08:18] LABS: BASOPHILS % (AUTO) 0.5 % (0-1); EOSINOPHILS # (AUTO) 0.1 X10'3 (0-0.9); EOSINOPHILS % (AUTO) 1.3 % (0-6); HEMATOCRIT 26.5 % (35.0-45.0); HEMOGLOBIN 8.7 g/dl (12.0-16.0); LYMPHOCYTES # (AUTO) 0.4 X10'3 (1.1-4.8); LYMPHOCYTES % (AUTO) 7.8 % (21-51); MEAN CORPUSCULAR HEMOGLOBIN 30.3 PG (27.0-31.0); MEAN CORPUSCULAR VOLUME 91.8 FL (78-98); MONOCYTES # (AUTO) 0.5 X10'3 (0-0.9); MONOCYTES % (AUTO) 9.1 % (2-12); NEUTROPHILS # (AUTO) 4.4 X10'3 (1.8-7.7); NEUTROPHILS % (AUTO) 81.3 % (42-75); PLATELET COUNT 202 X10'3 (140-440); RED BLOOD COUNT 2.88 X10'6 (4.20-5.60); RED CELL DISTRIBUTION WIDTH 16.2 % (11.5-14.5); WHITE BLOOD COUNT 5.4 X10'3 (4.5-11.0)
[2022-08-07 08:47] LABS: ALANINE AMINOTRANSFERASE 13 U/L (12-78); ALBUMIN 2.9 G/DL (3.4-5.0); ALKALINE PHOSPHATASE 78 IU/L (46-116); ANION GAP 6 (8-16); ASPARTATE AMINO TRANSFERASE 17 U/L (10-37); BILIRUBIN,TOTAL 0.6 MG/DL (0.1-1.0); BLOOD UREA NITROGEN 12 MG/DL (7-18); BUN/CREATININE RATIO 20.3 (6.6-38.0); CALCIUM 8.6 MG/DL (8.5-10.1); CHLORIDE 104 MMOL/L (99-107); CREATININE 0.59 MG/DL (0.40-0.90); GLUCOSE 100 MG/DL (70-104); HEMOGLOBIN A1C 4.9 % (4.5-6.2); MAGNESIUM 1.8 MG/DL (1.5-2.4); POTASSIUM 3.5 MMOL/L (3.5-5.1); SODIUM 138 MMOL/L (135-145); TOTAL CARBON DIOXIDE 27.6 MMOL/L (24-32); TOTAL PROTEIN 5.8 G/DL (6.4-8.2); eGFR > 90 ML/MIN
[2022-08-07] MEDS: vancomycin/NS 1 GM ADD-VANTAGE 250 ML IV SCH (09:05)
[2022-08-07] MEDS: duloxetine 30mg CAPSULE.DR PO SCH (09:07)
[2022-08-07] MEDS: sod chloride 0.9% 10ml flush syringe IV SCH ×2 (09:07)
[2022-08-07] MEDS: normal saline 1000ml 1,000 ML IV SCH (09:10)
[2022-08-07] MEDS: ALPRAZolam 0.25mg tablet PO PRN (09:20)
[2022-08-07] MEDS ORDERED: ASPI-1265 PO (09:30)
[2022-08-07] MEDS: acetaminophen 325mg tablet PO PRN (11:22)
[2022-08-07 13:40] LABS: BASOPHILS % (AUTO) 0.5 % (0-1); EOSINOPHILS % (AUTO) 0.8 % (0-6); HEMOGLOBIN 8.7 g/dl (12.0-16.0); LYMPHOCYTES # (AUTO) 0.4 X10'3 (1.1-4.8); LYMPHOCYTES % (AUTO) 7.4 % (21-51); MEAN CORPUSCULAR HEMOGLOBIN 30.1 PG (27.0-31.0); MEAN CORPUSCULAR HGB CONC 33.3 g/dL (33.0-36.5); MEAN CORPUSCULAR VOLUME 90.3 FL (78-98); MEAN PLATELET VOLUME 8.8 FL (7.4-10.4); MONOCYTES # (AUTO) 0.4 X10'3 (0-0.9); MONOCYTES % (AUTO) 6.9 % (2-12); NEUTROPHILS % (AUTO) 84.4 % (42-75); PLATELET COUNT 200 X10'3 (140-440); RED BLOOD COUNT 2.88 X10'6 (4.20-5.60); RED CELL DISTRIBUTION WIDTH 16.5 % (11.5-14.5); WHITE BLOOD COUNT 5.9 X10'3 (4.5-11.0)
--- NOTE | 2022-08-07 15:30 | NUR ---
PT GOT UP TO GET HER REGALADO AND BAG FROM NIGHT STAND AND TRIPPED OVER THE iv POLE. pT ASSISTED TO FEET. dENIES INJURY AND DID NOT HIT HER HEAD. KAYLA MARINO CALLED AND INFORMED.
== END 2022-08-07 16:01 | disposition home or self-care (01) | DRG 266 ==
LOC: PAS IN 07:21 → PCU 3S 16:43
PROVIDERS: ADMIT Internal Medicine Cardiovascular Disease; ATTEND Internal Medicine Cardiovascular Disease
PROC: 02RF38Z Replacement of Aortic Valve with Zooplastic Tissue, Percutaneous Approach (ICD-10-PCS; 2022-08-06)
PROC: 5A1223Z Performance of Cardiac Pacing, Continuous (ICD-10-PCS; 2022-08-06)
PROC: 30233N1 Transfusion of Nonautologous Red Blood Cells into Peripheral Vein, Percutaneous Approach (ICD-10-PCS; 2022-08-06)
PROC: B41D1ZZ Fluoroscopy of Aorta and Bilateral Lower Extremity Arteries using Low Osmolar Contrast (ICD-10-PCS; principal; 2022-08-06 11:17)
DX: I35.0 Nonrheumatic aortic (valve) stenosis (principal); Z00.6 Encounter for examination for normal comparison and control in clinical research program; I50.33 Acute on chronic diastolic (congestive) heart failure; K31.811 Angiodysplasia of stomach and duodenum with bleeding; I44.2 Atrioventricular block, complete; E78.5 Hyperlipidemia, unspecified; D64.9 Anemia, unspecified; I11.0 Hypertensive heart disease with heart failure; J44.9 Chronic obstructive pulmonary disease, unspecified; E66.9 Obesity, unspecified; F32.A Depression, unspecified; G47.30 Sleep apnea, unspecified; K57.90 Diverticulosis of intestine, part unspecified, without perforation or abscess without bleeding; Z68.36 Body mass index [BMI] 36.0-36.9, adult
CPT/HCPCS: 33361; 36415; 36430; 71045; 71046; 76937; 80053; 82948; 83036; 83735; 83880; 85025; 85347; 85610; 85730; 86870; 86880; 86885; 86900; 86901; 86902; 86920; 86922; 87081; 93005; 93308; 94640; A4615; A4618; A6258; A6449; C1756; C1760; C1769; C1892; C1894; G0378; J0690; J1644; J1815; J2250; J2370; J2704; J2720; J3010; J3370; J3490; J7030; J7040; J7050; J7060; J7120; P9016; Q9967

== ENCOUNTER 2022-08-12 05:38 | Emergency (ER) | payer MEDICARE, MEDICAID ==
[~2022-08-12] VITALS: Ht 162.6 cm; Wt 90.0 kg
[~2022-08-12 05:38] MED LIST changes: +ASPI-1265 PO; -albuterol 2.5 MG/3 ML nebule NEB ONE; -aspirin 325mg tablet PO ONE; -ceFAZolin inj. 2,000 MG in dextrose 5%-water 100 ML IV ONE; -famotidine 20mg tablet PO ONE; -nitroPRUSSIDE (NIPRIDE) (200MCG/ML) 100ML Drip IV SCH; -ondansetron/PF 4mg/2ml inj IV PRN; -phenylephrine inj 50 MG in normal saline 250ml IV solN IV SCH; -protamine sulfate 10mg/ml inj. ONE; -ringers solution, lacted 1,000 ML IV SCH; -vancomycin 1,500 MG in NS 300ml IV soln IV ONE
[2022-08-12 07:26] LABS: BASOPHILS % (AUTO) 0.7 % (0-1); EOSINOPHILS % (AUTO) 0.8 % (0-6); HEMATOCRIT 26.3 % (35.0-45.0); HEMOGLOBIN 8.7 g/dl (12.0-16.0); LYMPHOCYTES # (AUTO) 0.3 X10'3 (1.1-4.8); LYMPHOCYTES % (AUTO) 4.4 % (21-51); MEAN CORPUSCULAR HEMOGLOBIN 29.6 PG (27.0-31.0); MEAN CORPUSCULAR HGB CONC 32.9 g/dL (33.0-36.5); MEAN CORPUSCULAR VOLUME 89.9 FL (78-98); MEAN PLATELET VOLUME 9.2 FL (7.4-10.4); MONOCYTES # (AUTO) 0.5 X10'3 (0-0.9); MONOCYTES % (AUTO) 8.6 % (2-12); NEUTROPHILS # (AUTO) 5.1 X10'3 (1.8-7.7); NEUTROPHILS % (AUTO) 85.5 % (42-75); PLATELET COUNT 251 X10'3 (140-440); RED BLOOD COUNT 2.93 X10'6 (4.20-5.60); RED CELL DISTRIBUTION WIDTH 15.6 % (11.5-14.5)
[2022-08-12 07:29] LABS: ALANINE AMINOTRANSFERASE 14 U/L (12-78); ALBUMIN 2.8 G/DL (3.4-5.0); ALBUMIN/GLOBULIN RATIO 0.8 (1.1-1.5); ALKALINE PHOSPHATASE 84 IU/L (46-116); ANION GAP 4 (8-16); ASPARTATE AMINO TRANSFERASE 21 U/L (10-37); BILIRUBIN,TOTAL 0.2 MG/DL (0.1-1.0); BLOOD UREA NITROGEN 10 MG/DL (7-18); BUN/CREATININE RATIO 15.6 (6.6-38.0); CALCIUM 8.8 MG/DL (8.5-10.1); CHLORIDE 103 MMOL/L (99-107); CREATININE 0.64 MG/DL (0.40-0.90); GLUCOSE 118 MG/DL (70-104); POTASSIUM 4.1 MMOL/L (3.5-5.1); SODIUM 136 MMOL/L (135-145); TOTAL CARBON DIOXIDE 29.3 MMOL/L (24-32); TOTAL PROTEIN 6.3 G/DL (6.4-8.2); eGFR > 90 ML/MIN
--- NOTE | 2022-08-12 08:44 | NUR ---
Trop [address] results given to Dr[address] Unger
[2022-08-12 09:39] VITALS: BP 110/52
== END 2022-08-12 10:42 | disposition home or self-care (01) ==
LOC: ER 05:39
DX: R06.00 Dyspnea, unspecified (principal); D64.9 Anemia, unspecified; E78.00 Pure hypercholesterolemia, unspecified; I10 Essential (primary) hypertension; J45.909 Unspecified asthma, uncomplicated; Z88.5 Allergy status to narcotic agent
CPT/HCPCS: 36415; 71045; 80053; 83880; 84484; 85025; 86870; 86885; 86900; 86901; 86902; 86905; 93005; 93308; 99285; A4615

== ENCOUNTER 2022-09-07 11:24 | Outpatient (CLI) | payer MEDICARE, MEDICAID ==
[~2022-09-07 11:24] MED LIST changes: -ASPI-1265 PO; +ASPI-920 PO; +IPRA3AMP9 NEB; +guaiFENesin/codeine oral syrup PO
== END 2022-09-07 23:59 | disposition home or self-care (01) ==
LOC: RAD 11:24
PROVIDERS: ATTEND Internal Medicine Cardiovascular Disease
DX: Z48.812 Encounter for surgical aftercare following surgery on the circulatory system (principal); I08.8 Other rheumatic multiple valve diseases; Z95.2 Presence of prosthetic heart valve
CPT/HCPCS: 93306